=== PATIENT | female | born 1960 | race Two or more races ===

== ENCOUNTER 2024-08-19 14:28 | Outpatient (RCR) | payer MEDICAID, SELFPAY ==
--- NOTE | 2024-09-07 01:50 | CTCFLWUP_ITS ---
Patient: JACY GIRALDO : 1960 Page 7 of 9 FOLLOW UP NOTE DATE OF SERVICE: 08/19/2024 NAME: JACY GIRALDO ACCOUNT: [id number] : 1960 AGE: 64 INTERVAL HISTORY: Vivian Giraldo, a patient with a history of lymphoma currently in remission, presents for a follow-up visit. She reports no symptoms related to her lymphoma, and recent blood work, including special labs to monitor lymphoma, are normal. A mammogram in February 2024 showed findings on the right side requiring follow-up imaging, which is scheduled for September 08. The plan includes repeating blood work and scheduling a follow-up appointment in 6 months. Chief Complaint Follow-up for lymphoma monitoring History of Present Illness Vivian Giraldo is a patient with a history of lymphoma presenting for a follow-up visit. She reports no current symptoms related to her lymphoma. The patient denies experiencing any weight loss, night sweats, or swelling in any part of her body. She does not report any new symptoms or changes in her overall health status since her last visit. Vivian's functioning appears to be stable, and she does not mention any impact on her daily activities or quality of life related to her medical condition. Medical History - Lymphoma, currently in remission Review of Systems General: Negative for weight loss, night sweats. Hematological/Lymphatic: Negative for swelling. Laboratory, Imaging, and Diagnostic Test Results - Recent bloodwork: - Hemoglobin: Normal - Platelets: Normal - Liver function tests: Normal - Kidney function tests: Normal - Special labs to monitor lymphoma: Normal - Mammogram (February 2024): Radiologist recommended follow-up in 6 months, particularly on the right side ONCOLOGY HISTORY: DIAGNOSIS: Stage IIIA classical Hodgkin's lymphoma. S/p 6 cycles ABVD chemotherapy (06/11/2021?(12/19/2021) S/p radiation therapy to the right neck (03/04/2022 - 03/27/2022) REASON FOR TODAY?S VISIT: This is office follow-up visit. Ms. Giraldo is here at [facility] cancer [facility]. She is clinically doing well. Denies any new complaints. Denies any cough, chest pain, abdominal pain or leg cramps. Ambulating well without any help. Has good appetite and good energy levels. Denies any fevers or night sweats. Other classical Hodgkin lymphoma, unspecified site [ICD10] C81.70 DATE OF DIAGNOSIS: STAGE/TNM: TREATMENT HISTORY: Care?Plan Start?Date Cycle Day Intent Hodgkin?Lymphoma 06/11/2021 1 Curative?(primary) VENOfer?200mg?IV?wkly 06/18/2021 1 Palliative HISTORY OF PRESENT ILLNESS: Jacy Giraldo is a 64-year-old SPA speaking female with history of type 2 diabetes, hypertension has the following oncology history. March 2020: Patient felt a painless lump in the right side of the neck. The lump was steadily increasing in size over the last few months. 09/26/2020: CT scan of the neck with IV contrast? October 2020: She felt another lump in the right side of the neck. 11/06/2020: CT scan of the abdomen and pelvis without contrast? 03/13/2021: Patient had incisional biopsy of the right neck mass? 04/12/2021: PET CT scan ordered. 04/17/2021: PET CT scan approved. 05/18/2020: PET CT scan scheduled. Unfortunately patient was positive for Covid. PET/CT scan postponed. 06/01/2021: PET/CT scan was canceled due to lack of wind turbine technician. 06/08/2021: PET/CT scan was scheduled. The test was not done due to patient eating something prior to the test. 06/11/2021: Patient received first dose of ABVD chemotherapy. 06/15/2021: PET/CT scan? 07/03/2021: Patient received cycle 1 day 15 of ABVD. 08/06/2021: Patient received cycle 2-day 15 of ABVD chemotherapy 08/17/2021: PET/CT scan? 12/19/2021: Patient completed 6 cycles of ABVD chemotherapy. 02/07/2022: PET/CT scan? 03/04/2022 - 03/27/2022: Ms. Giraldo received 3060 cGy radiation therapy to the right neck. 07/25/2022: PET/CT scan 08/14/2022: Bilateral screening mammograms 08/20/2022: CT scan of the chest without IV contrast 03/27/2023: PET/CT scan? 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 BuSpar - 10 mg 0.5 tab As needed 2. cephALEXin - 500 mg Capsule As directed 3. cyclobenzaprine - 5 mg 1 tab TWICE Daily 4. fluconazole - 150 mg 1 tab Weekly 5. glipiZIDE - 5 mg 1 tab Twice a Day 6. Janumet - 50-1,000 mg 1 tab Twice a Day 7. loratadine - 10 mg 1 Capsule Daily 8. omeprazole - 20 mg 1 Capsule As needed Medications Last Reconciled by Klarissa Stewart MA on 08/19/2024 ALLERGIES: No Known Drug Allergies REVIEW OF SYSTEMS: A complete 14-point review of systems was performed and is negative except as noted in interval history. PHYSICAL EXAMINATION: VITAL SIGNS: Temperature?98.2, B/P?144/82, Oxygen?Saturation?100% Weight?145?lbs PAIN: 0 - No pain ECOG Performance Status: 1 - Symptomatic; ambulatory; restricted in strenuous activity GENERAL APPEARANCE: Appears well, in no apparent distress, appropriately interactive. HEENT: Normocephalic, no temporal wasting, normal conjunctiva, no scleral icterus, normal hearing, lips without lesions, neck normal range of motion. CARDIOVASCULAR: Not assessed. PULMONARY: Normal respiratory effort, no respiratory distress or use of accessory muscles, speaking in full sentences, no tachypnea. EXTREMITIES: No pedal edema or cyanosis. SKIN: Normal skin appearance. NEUROLOGIC: Alert and oriented x4. PSHYCHIATRIC: Appropriate affect, mood normal, behavior normal, intact thought and speech. LABORATORY DATA: I have personally reviewed and interpreted each of the patient?s relevant lab tests, abnormal findings are below: Date 08/18/23 12/26/23 ??WHITE?BLOOD?COUNT?(Thou/mm3) 6.7 5.0 ??RED?BLOOD?COUNT?(Miln/mm3) 3.74?L 3.66?L ??HEMOGLOBIN?(gm/dl) 11.2?L 10.9?L ??HEMATOCRIT?(%) 33.6?L 32.6?L ??PLATELET?COUNT?(Thou/mm3) 296 326 ??NEUTROPHILS?%,?AUTO?(%) 59 54 ??LYMPH?%,?AUTO?(%) 31 35 ??NEUTROPHILS,?AUTO?(Thou/mm3) 4.0 2.7 ??GLUCOSE,RANDOM?(mg/dL) ? 141?H ??BLOOD?UREA?NITROGEN?(mg/dL) ? 14 ??CREATININE?(mg/dL) ? 0.90 ??SODIUM?(mmol/L) ? 135?L ??POTASSIUM?(mmol/L) ? 4.0 ??CHLORIDE?(mmol/L) ? 103 ??CrCl?(CandG)?(ml/min) ? 58.89 ??AST/SGOT?(Unit/L) ? 21 ??ALT/SGPT?(Unit/L) ? 16 ??ALKALINE?PHOSPHATASE?(Unit/L) ? 90 ??BILIRUBIN,?TOTAL?(mg/dL) ? 0.4 ??PROTEIN?TOTAL?(gm/dl) ? 7.2 ??ALBUMIN,?SERUM?(gm/dl) ? 4.5 ??GLOBULIN?(gm/dl) ? 2.7 ??ALBUMIN/GLOBULIN?RATIO ? 1.7 ??CALCIUM,?SERUM?(mg/dL) ? 10.3 ??CALCIUM?SERUM?(CORRECTED)?(mg/dL) ? 10.3?H ??LDH,?TOTAL?(Unit/L) ? 154 ASSESSMENT/PLAN: Sarah Beth, a patient with a history of lymphoma, presents for follow-up with no current symptoms. Lymphoma (in remission) Assessment: Patient's lymphoma appears to be in remission. Recent blood work, including special labs to monitor lymphoma, are all normal. Patient denies any symptoms suggestive of disease recurrence, such as weight loss, night sweats, or swelling. Based on these findings, there is currently no evidence of active disease or increased risk. Plan: - Repeat blood work, including lymphoma monitoring labs, in 6 months - Follow-up appointment scheduled in 6 months - Patient instructed to complete blood work 2 weeks prior to next appointment Breast cancer screening Assessment: Patient had a mammogram in February, which showed findings on the right side requiring follow-up imaging in 6 months. An appointment for this follow-up mammogram has been scheduled for September 08. Plan: - Proceed with scheduled mammogram on September 08 - Clinician to review mammogram results and call patient in 4 weeks to discuss findings - If mammogram results are concerning, patient instructed to follow up earlier - Schedule next routine mammogram in February ORDERS: Order # Description [id number] 3D Mammogram Diagnostic + Bilateral [id number] Lactate Dehydrogenase (LDH) [id number] MD Follow Up 4 Week [id number] MD Follow Up 6 Month RETURN TO CLINIC: BILLING AND COMPLIANCE: I reviewed external records from providers outside my specialty as summarized above. I spent a total of 50 minutes on this patient?s care on the day of their visit excluding time spent related to any billed procedures. This time includes time spent with the patient as well as time spent documenting in the medical record, reviewing patients records and tests, obtaining history, placing orders, communicating with other healthcare professionals, counseling the patient, family or caregiver, and/or care coordination for the diagnoses above. Electronically Signed by: {Object.Sanct_ID*[email or web address]@M}, {Object.Sanct_ID*PnP.Suffix@U} D: {Object.Sanct_Date} T: {Object.Sanct_Time} CC: PCP: Duglas Butt Referring: Duglas Butt This document was completed utilizing speech recognition software. Grammatical errors, random word insertions, pronoun errors, and incomplete sentences are an occasional consequence of this system due to software limitations, ambient noise, and hardware issues. Any formal questions or concerns about the content, text or information contained within the body of this dictation should be directly addressed to the provider for clarification.
== END 2024-09-08 23:59 | disposition home or self-care (01) ==
LOC: SCTC 14:28
PROVIDERS: PCP Physician Assistant; Referring Provider Physician Assistant; Visit Provider Internal Medicine Hematology & Oncology
DX: Z08 Encounter for follow-up examination after completed treatment for malignant neoplasm (principal); Z85.72 Personal history of non-Hodgkin lymphomas
CPT/HCPCS: 99213; G0463

== ENCOUNTER → 2024-09-08 | Outpatient (CLI) | payer MEDICAID, SELFPAY ==
--- NOTE | 2024-09-08 11:00 | XR_ITS ---
Examination: Diagnostic digital mammography, unilateral, right Computer aided detection 3-D breast Tomosynthesis, unilateral Date and time of exam: September 09, 2019 5:11 AM INDICATIONS: Mammogram February 10, 2024 architectural distortion 12:00 position right breast Technique: Nonmagnified MLO, CC views of the right breast have been obtained, reconstructed from 3-D Tomosynthesis images. R2 computer aided detection program utilized for evaluation of suspicious masses and/or abnormal calcifications. 3-D Tomosynthesis images obtained. Findings: Scattered areas of fibroglandular density. No suspicious right breast lesion currently noted Benign calcifications Impression: BI-RADS category 2: Benign findings 6 month bilateral mammography follow-up recommended
== END | disposition home or self-care (01) ==
PROVIDERS: PCP Internal Medicine Hematology & Oncology; Referring Provider Internal Medicine Hematology & Oncology; Visit Provider Internal Medicine Hematology & Oncology
DX: R92.321 Mammographic fibroglandular density, right breast (principal); C81.70 Other Hodgkin lymphoma, unspecified site
CPT/HCPCS: 77061; 77065; G0279

== ENCOUNTER 2024-09-23 15:28 | Outpatient (RCR) | payer MEDICAID, SELFPAY ==
--- NOTE | 2024-09-30 14:18 | CTCFLWUP_ITS ---
Patient: JACY GIRALDO : 1960 Page 2 of 2 FOLLOW UP NOTE DATE OF SERVICE: 09/23/2024 NAME: JACY GIRALDO ACCOUNT: [id number] : 1960 AGE: 64 INTERVAL HISTORY: Subjective: Chief Complaint Follow-up for lymphoma History of Present Illness Vivian Reyes, also known as Vivian, is a patient with a history of lymphoma diagnosed in 2021 who underwent chemotherapy. She presents for a follow-up visit with no current symptoms related to her lymphoma. Vivian denies experiencing any overnight sweats, enlarged lymph nodes or glands, loss of appetite, unintentional weight loss, or difficulty eating more than small meals. She reports no changes in her eating habits or weight that would be concerning for recurrence of her lymphoma. Review of Systems General: Negative for night sweats, weight loss, loss of appetite. Hematological/Lymphatic: Negative for lymphadenopathy. Objective: Laboratory, Imaging, and Diagnostic Test Results - Mammogram: Normal (date not specified) DIAGNOSIS: Stage IIIA classical Hodgkin's lymphoma. S/p 6 cycles ABVD chemotherapy (06/11/2021?(12/19/2021) S/p radiation therapy to the right neck (03/04/2022 - 03/27/2022) REASON FOR TODAY?S VISIT: This is office follow-up visit. Ms. Giraldo is here at [facility]. She is clinically doing well. Denies any new complaints. Denies any cough, chest pain, abdominal pain or leg cramps. Ambulating well without any help. Has good appetite and good energy levels. Denies any fevers or night sweats. Other classical Hodgkin lymphoma, unspecified site [ICD10] C81.70 DATE OF DIAGNOSIS: STAGE/TNM: TREATMENT HISTORY: Care?Plan Start?Date Cycle Day Intent Hodgkin?Lymphoma 06/11/2021 1 28 Curative?(primary) VENOfer?200mg?IV?wkly 06/18/2021 1 70 Palliative HISTORY OF PRESENT ILLNESS: Jacy Giraldo is a 64-year-old S[place] speaking female with history of type 2 diabetes, hypertension has the following oncology history. March 2020: Patient felt a painless lump in the right side of the neck. The lump was steadily increasing in size over the last few months. 09/26/2020: CT scan of the neck with IV contrast? October 2020: She felt another lump in the right side of the neck. 11/06/2020: CT scan of the abdomen and pelvis without contrast? 03/13/2021: Patient had incisional biopsy of the right neck mass? 04/12/2021: PET CT scan ordered. 04/17/2021: PET CT scan approved. 05/18/2020: PET CT scan scheduled. Unfortunately patient was positive for Covid. PET/CT scan postponed. 06/01/2021: PET/CT scan was canceled due to lack of large animal husbandry technician. 06/08/2021: PET/CT scan was scheduled. The test was not done due to patient eating something prior to the test. 06/11/2021: Patient received first dose of ABVD chemotherapy. 06/15/2021: PET/CT scan? 07/03/2021: Patient received cycle 1 day 15 of ABVD. 08/06/2021: Patient received cycle 2-day 15 of ABVD chemotherapy 08/17/2021: PET/CT scan? 12/19/2021: Patient completed 6 cycles of ABVD chemotherapy. 02/07/2022: PET/CT scan? 03/04/2022 - 03/27/2022: Ms. Giraldo received 3060 cGy radiation therapy to the right neck. 07/25/2022: PET/CT scan 08/14/2022: Bilateral screening mammograms 08/20/2022: CT scan of the chest without IV contrast 03/27/2023: PET/CT scan? 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 BuSpar - 10 mg 0.5 tab As needed 2. fluconazole - 150 mg 1 tab Weekly 3. glipiZIDE - 5 mg 1 tab Twice a Day 4. Janumet - 50-1,000 mg 1 tab Twice a Day 5. loratadine - 10 mg 1 Capsule Daily 6. omeprazole - 20 mg 1 Capsule As needed Medications Last Reconciled by Klarissa Stewart MA on 09/23/2024 ALLERGIES: No Known Drug Allergies REVIEW OF SYSTEMS: A complete 14-point review of systems was performed and is negative except as noted in interval history. PHYSICAL EXAMINATION: VITAL SIGNS: Temperature?98.2, B/P?150/86, Oxygen?Saturation?99% PAIN: 2 - Mild pain ECOG Performance Status: 0 - Asymptomatic and fully active GENERAL APPEARANCE: Appears well, in no apparent distress, appropriately interactive. HEENT: Normocephalic, no temporal wasting, normal conjunctiva, no scleral icterus, normal hearing, lips without lesions, neck normal range of motion. CARDIOVASCULAR: Not assessed. PULMONARY: Normal respiratory effort, no respiratory distress or use of accessory muscles, speaking in full sentences, no tachypnea. EXTREMITIES: No pedal edema or cyanosis. SKIN: Normal skin appearance. NEUROLOGIC: Alert and oriented x4. PSHYCHIATRIC: Appropriate affect, mood normal, behavior normal, intact thought and speech. LABORATORY DATA: I have personally reviewed and interpreted each of the patient?s relevant lab tests, abnormal findings are below: Date 08/18/23 12/26/23 ??WHITE?BLOOD?COUNT?(Thou/mm3) 6.7 5.0 ??RED?BLOOD?COUNT?(Miln/mm3) 3.74?L 3.66?L ??HEMOGLOBIN?(gm/dl) 11.2?L 10.9?L ??HEMATOCRIT?(%) 33.6?L 32.6?L ??PLATELET?COUNT?(Thou/mm3) 296 326 ??NEUTROPHILS?%,?AUTO?(%) 59 54 ??LYMPH?%,?AUTO?(%) 31 35 ??NEUTROPHILS,?AUTO?(Thou/mm3) 4.0 2.7 ??GLUCOSE,RANDOM?(mg/dL) ? 141?H ??BLOOD?UREA?NITROGEN?(mg/dL) ? 14 ??CREATININE?(mg/dL) ? 0.90 ??SODIUM?(mmol/L) ? 135?L ??POTASSIUM?(mmol/L) ? 4.0 ??CHLORIDE?(mmol/L) ? 103 ??CrCl?(CandG)?(ml/min) ? 58.89 ??AST/SGOT?(Unit/L) ? 21 ??ALT/SGPT?(Unit/L) ? 16 ??ALKALINE?PHOSPHATASE?(Unit/L) ? 90 ??BILIRUBIN,?TOTAL?(mg/dL) ? 0.4 ??PROTEIN?TOTAL?(gm/dl) ? 7.2 ??ALBUMIN,?SERUM?(gm/dl) ? 4.5 ??GLOBULIN?(gm/dl) ? 2.7 ??ALBUMIN/GLOBULIN?RATIO ? 1.7 ??CALCIUM,?SERUM?(mg/dL) ? 10.3 ??CALCIUM?SERUM?(CORRECTED)?(mg/dL) ? 10.3?H ??LDH,?TOTAL?(Unit/L) ? 154 ASSESSMENT/PLAN: Sarah Beth, a patient with a history of lymphoma, presents for follow-up with no current symptoms. Assessment and Plan: Vivian Reyes, female patient with a history of lymphoma treated with chemotherapy in 2021, presenting for follow-up. Lymphoma, in remission Assessment: Patient with a history of lymphoma treated with chemotherapy in 2021. Currently asymptomatic with no reported overnight sweats, lymphadenopathy, or constitutional symptoms such as unintentional weight loss or decreased appetite. Recent mammogram results were normal. Plan: - Follow-up appointment scheduled in 6 months (March) - Complete blood work prior to next appointment - Patient education provided on symptoms to monitor: - Lymphadenopathy - Unintentional weight loss - Decreased appetite or early satiety - Instructions given to report any of these symptoms if they occur Breast cancer screening Assessment: Patient had a mammogram in February, which showed findings on the right side requiring follow-up imaging in 6 months. An appointment for this follow-up mammogram has been scheduled for September 08. Plan: - Proceed with scheduled mammogram on September 08 - Clinician to review mammogram results and call patient in 4 weeks to discuss findings - If mammogram results are concerning, patient instructed to follow up earlier - Schedule next routine mammogram in February ORDERS: Order # Description [id number] 3D Mammogram Diagnostic + Bilateral [id number] Lactate Dehydrogenase (LDH) [id number] MD Follow Up 4 Week [id number] MD Follow Up 6 Month [id number] Comprehensive Metabolic Panel - 12 + CBC with Auto Diff + MD Follow Up 6 Month + Uric Acid, Serum [id number] Lactate Dehydrogenase (LDH) RETURN TO CLINIC: BILLING AND COMPLIANCE: I reviewed external records from providers outside my specialty as summarized above. I spent a total of 50 minutes on this patient?s care on the day of their visit excluding time spent related to any billed procedures. This time includes time spent with the patient as well as time spent documenting in the medical record, reviewing patients records and tests, obtaining history, placing orders, communicating with other healthcare professionals, counseling the patient, family or caregiver, and/or care coordination for the diagnoses above. Electronically Signed by: Blade Lawrence MD T: 1:04 PM CC: PCP: Blade Lawrence Referring: Duglas Butt This document was completed utilizing speech recognition software. Grammatical errors, random word insertions, pronoun errors, and incomplete sentences are an occasional consequence of this system due to software limitations, ambient noise, and hardware issues. Any formal questions or concerns about the content, text or information contained within the body of this dictation should be directly addressed to the provider for clarification.
== END 2024-10-09 23:59 | disposition home or self-care (01) ==
LOC: SCTC 15:28
PROVIDERS: PCP Physician Assistant; Referring Provider Internal Medicine Hematology & Oncology; Visit Provider Internal Medicine Hematology & Oncology
DX: C81.7 Other Hodgkin lymphoma (principal); R92.8 Other abnormal and inconclusive findings on diagnostic imaging of breast
CPT/HCPCS: 99213; G0463

== ENCOUNTER → 2025-03-11 | Outpatient (CLI) | payer MEDICAID, SELFPAY ==
--- NOTE | 2025-03-11 11:15 | XR_ITS ---
Examination: Diagnostic digital mammography, bilateral Computer aided detection 3-D breast Tomosynthesis, bilateral Date and time of exam: March 11, 2025, 0938 hours INDICATIONS: Mammogram February 10, 2020 for architectural distortion 12 o'clock position right breast Technique: Nonmagnified MLO, CC views of the breasts to been obtained, reconstructed from 3-D Tomosynthesis images. R2 computer aided detection program utilized for evaluation of suspicious masses and/or abnormal calcifications. 3-D Tomosynthesis images obtained. Findings: Scattered areas of fibroglandular density. Benign calcifications. No suspicious masses noted on the follow-up examination Impression: BI-RADS Category 2: Benign findings Return to yearly follow-up mammography.
== END | disposition home or self-care (01) ==
LOC: CDIM 09:25
PROVIDERS: Referring Provider Internal Medicine Hematology & Oncology; Visit Provider Internal Medicine Hematology & Oncology
DX: R92.323 Mammographic fibroglandular density, bilateral breasts (principal); R92.1 Mammographic calcification found on diagnostic imaging of breast; C81.70 Other Hodgkin lymphoma, unspecified site
CPT/HCPCS: 77062; 77066; G0279

== ENCOUNTER 2025-03-14 10:14 | Outpatient (RCR) | payer MEDICAID, SELFPAY ==
--- NOTE | 2025-03-14 11:26 | CTCFLWUP_ITS ---
Patient: MADHURI GIRALDO : 1960 Page 7 of 9 FOLLOW UP NOTE DATE OF SERVICE: 03/14/2025 NAME: MADHURI GIRALDO ACCOUNT: [id number] : 1960 AGE: 65 INTERVAL HISTORY: Subjective: Chief Complaint Follow-up for lymphoma History of Present Illness Madhuri Reyes, also known as Madhuri, is a patient with a history of lymphoma diagnosed in 2021 who underwent chemotherapy. She presents for a follow-up visit with no current symptoms related to her lymphoma. Madhuri denies experiencing any overnight sweats, enlarged lymph nodes or glands, loss of appetite, unintentional weight loss, or difficulty eating more than small meals. She reports no changes in her eating habits or weight that would be concerning for recurrence of her lymphoma. Review of Systems General: Negative for night sweats, weight loss, loss of appetite. Hematological/Lymphatic: Negative for lymphadenopathy. Objective: Laboratory, Imaging, and Diagnostic Test Results - Mammogram: Normal (date not specified) ONCOLOGY HISTORY: DIAGNOSIS: Other classical Hodgkin lymphoma, unspecified site [ICD10] C81.70 Stage IIIA classical Hodgkin's lymphoma. S/p 6 cycles ABVD chemotherapy (06/11/2021?(12/19/2021) S/p radiation therapy to the right neck (03/04/2022 - 03/27/2022) REASON FOR TODAY?S VISIT: This is office follow-up visit. Ms. Giraldo is here at [facility]. She is clinically doing well. Denies any new complaints. Denies any cough, chest pain, abdominal pain or leg cramps. Ambulating well without any help. Has good appetite and good energy levels. Denies any fevers or night sweats. Other classical Hodgkin lymphoma, unspecified site [ICD10] C81.70 DATE OF DIAGNOSIS: STAGE/TNM: Stage 4 TREATMENT HISTORY: Care?Plan Start?Date Cycle Day Intent Hodgkin?Lymphoma 06/11/2021 1 28 Curative?(primary) VENOfer?200mg?IV?wkly 06/18/2021 1 70 Palliative HISTORY OF PRESENT ILLNESS: Yanelis Giraldo is a 65-year-old [place] speaking female with history of type 2 diabetes, hypertension has the following oncology history. March 2020: Patient felt a painless lump in the right side of the neck. The lump was steadily increasing in size over the last few months. 09/26/2020: CT scan of the neck with IV contrast? October 2020: She felt another lump in the right side of the neck. 11/06/2020: CT scan of the abdomen and pelvis without contrast? 03/13/2021: Patient had incisional biopsy of the right neck mass? 04/12/2021: PET CT scan ordered. 04/17/2021: PET CT scan approved. 05/18/2020: PET CT scan scheduled. Unfortunately patient was positive for Covid. PET/CT scan postponed. 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 06/08/2021: PET/CT scan was scheduled. The test was not done due to patient eating something prior to the test. 06/11/2021: Patient received first dose of ABVD chemotherapy. 06/15/2021: PET/CT scan? 07/03/2021: Patient received cycle 1 day 15 of ABVD. 08/06/2021: Patient received cycle 2-day 15 of ABVD chemotherapy 08/17/2021: PET/CT scan? 12/19/2021: Patient completed 6 cycles of ABVD chemotherapy. 02/07/2022: PET/CT scan? 03/04/2022 - 03/27/2022: Ms. Giraldo received 3060 cGy radiation therapy to the right neck. 07/25/2022: PET/CT scan 08/14/2022: Bilateral screening mammograms 08/20/2022: CT scan of the chest without IV contrast 03/27/2023: PET/CT scan? 08/21/2023: CT scan of the chest with IV contrast PET CT scan on 02/12/2024-no interval recurrent or metastatic disease OTHER MEDICAL HISTORY/CONDITIONS: FAMILY HISTORY: ?Clone Family Hx? SOCIAL HISTORY: CRANK HAND HISTORY: MEDICATIONS: 1. BuSpar - 10 mg 0.5 tab As needed 2. fluconazole - 150 mg 1 tab Weekly 3. glipiZIDE - 5 mg 1 tab Twice a Day 4. Janumet - 50-1,000 mg 1 tab Twice a Day 5. loratadine - 10 mg 1 Capsule Daily 6. omeprazole - 20 mg 1 Capsule As needed?Pal[facility]ra Meds? Medications Last Reconciled by Klarissa Stewart MA on 09/23/2024 ALLERGIES: No Known Drug Allergies REVIEW OF SYSTEMS: A complete 14-point review of systems was performed and is negative except as noted in interval history. PHYSICAL EXAMINATION:?CloneBlock PE? VITAL SIGNS: PAIN: 0 - No pain ECOG Performance Status: 0 - Asymptomatic and fully active GENERAL APPEARANCE: Appears well, in no apparent distress, appropriately interactive. HEENT: Normocephalic, no temporal wasting, normal conjunctiva, no scleral icterus, normal hearing, lips without lesions, neck normal range of motion. CARDIOVASCULAR: Not assessed. PULMONARY: Normal respiratory effort, no respiratory distress or use of accessory muscles, speaking in full sentences, no tachypnea. EXTREMITIES: No pedal edema or cyanosis. SKIN: Normal skin appearance. NEUROLOGIC: Alert and oriented x4. PSHYCHIATRIC: Appropriate affect, mood normal, behavior normal, intact thought and speech. LABORATORY DATA: I have personally reviewed and interpreted each of the patient?s relevant lab tests, abnormal findings are below: Date 08/18/23 12/26/23 ??WHITE?BLOOD?COUNT?(Thou/mm3) 6.7 5.0 ??RED?BLOOD?COUNT?(Miln/mm3) 3.74?L 3.66?L ??HEMOGLOBIN?(gm/dl) 11.2?L 10.9?L ??HEMATOCRIT?(%) 33.6?L 32.6?L ??PLATELET?COUNT?(Thou/mm3) 296 326 ??NEUTROPHILS?%,?AUTO?(%) 59 54 ??LYMPH?%,?AUTO?(%) 31 35 ??NEUTROPHILS,?AUTO?(Thou/mm3) 4.0 2.7 ??GLUCOSE,RANDOM?(mg/dL) ? 141?H ??BLOOD?UREA?NITROGEN?(mg/dL) ? 14 ??CREATININE?(mg/dL) ? 0.90 ??SODIUM?(mmol/L) ? 135?L ??POTASSIUM?(mmol/L) ? 4.0 ??CHLORIDE?(mmol/L) ? 103 ??CrCl?(CandG)?(ml/min) ? 58.89 ??AST/SGOT?(Unit/L) ? 21 ??ALT/SGPT?(Unit/L) ? 16 ??ALKALINE?PHOSPHATASE?(Unit/L) ? 90 ??BILIRUBIN,?TOTAL?(mg/dL) ? 0.4 ??PROTEIN?TOTAL?(gm/dl) ? 7.2 ??ALBUMIN,?SERUM?(gm/dl) ? 4.5 ??GLOBULIN?(gm/dl) ? 2.7 ??ALBUMIN/GLOBULIN?RATIO ? 1.7 ??CALCIUM,?SERUM?(mg/dL) ? 10.3 ??CALCIUM?SERUM?(CORRECTED)?(mg/dL) ? 10.3?H ??LDH,?TOTAL?(Unit/L) ? 154 ASSESSMENT/PLAN:?Marcus Lawrence Assessment/Plan? Sarah Beth, a patient with a history of lymphoma, presents for follow-up with no current symptoms. Madhuri Horowitz Yonathan Eric, female patient with a history of lymphoma treated with chemotherapy in 2021, presenting for follow-up. Lymphoma, in remission Assessment: Patient with a history of lymphoma treated with chemotherapy in 2021. Currently asymptomatic with no reported overnight sweats, lymphadenopathy, or constitutional symptoms such as unintentional weight loss or decreased appetite. Breast cancer screening Assessment: Patient had a mammogram in august 2024 and recommeneded was to repeat in 6 months Mammogram negative ORDERS: Order # Description [id number] MD Follow Up 6 Month [id number] Comprehensive Metabolic Panel - 12 + CBC with Auto Diff + Uric Acid, Serum [id number] Lactate Dehydrogenase (LDH) [id number] Comprehensive Metabolic Panel - 12 + CBC with Auto Diff + MD Follow Up 6 Month + Uric Acid, Serum [id number] Lactate Dehydrogenase (LDH) RETURN TO CLINIC: I reviewed the diagnosis, prognosis, and recommended treatment/procedure options with the patient (and/or their legal uniforms sales representative), including the potential benefits, risks, side effects and alternative therapies. We also discussed the option of no treatment and the possibility of clinical trial participation, if applicable. All questions were addressed, and they demonstrated understanding. They provided informed consent to proceed with the proposed plan of care. BILLING AND COMPLIANCE: I reviewed external records from providers outside my specialty as summarized above. I spent a total of 50 minutes on this patient?s care on the day of their visit excluding time spent related to any billed procedures. This time includes time spent with the patient as well as time spent documenting in the medical record, reviewing patients records and tests, obtaining history, placing orders, communicating with other healthcare professionals, counseling the patient, family or caregiver, and/or care coordination for the diagnoses above. Electronically Signed by: Blade Lawrence MD T: 11:24 AM CC: PCP: Duglas Butt Referring: Duglas Butt This document was completed utilizing speech recognition software. Grammatical errors, random word insertions, pronoun errors, and incomplete sentences are an occasional consequence of this system due to software limitations, ambient noise, and hardware issues. Any formal questions or concerns about the content, text or information contained within the body of this dictation should be directly addressed to the provider for clarification.
== END 2025-04-10 23:59 | disposition home or self-care (01) ==
LOC: SCTC 10:14
PROVIDERS: PCP Physician Assistant; Referring Provider Physician Assistant; Visit Provider Internal Medicine Hematology & Oncology
DX: Z08 Encounter for follow-up examination after completed treatment for malignant neoplasm (principal); Z85.72 Personal history of non-Hodgkin lymphomas; Z92.21 Personal history of antineoplastic chemotherapy
CPT/HCPCS: 99212; G0463